=== PATIENT | male | born 1955 | race Caucasian/White ===

== ENCOUNTER 2017-02-18 10:41 | Emergency (ER) | payer OTHER ==
[2017-02-18 10:55] VITALS: BP 166/101
[2017-02-18] MEDS ORDERED: Belladonna Alkaloids/Opium 16.2-30 MG Supp RECTAL ONE (11:48)
--- NOTE | 2017-02-18 11:55 | EDM.PDOC ---
ED HPI GENERAL MEDICAL PROBLEM - General Chief Complaint: Genitourinary Problem Stated Complaint: SUPRAPUBIC CATHETER PLUGGED Time Seen by Provider: 02/18/17 11:47 Source of Information: Reports: Patient, RN Notes Reviewed History Limitations: Reports: No Limitations - History of Present Illness INITIAL COMMENTS - FREE TEXT/NARRATIVE: 61-year-old gentleman presents emergency department today with difficulties urinating, he has a known suprapubic catheter secondary to complications of prostate cancer, he has had difficulty with dysfunction of the suprapubic catheter by clogging, this particular event has been going on for the last 12 hours he's unable to flush the catheter Bladder Pain Score (Numeric/FACES): 8 - Related Data Allergies Allergy/AdvReac Type Severity Reaction Status Date / Time Penicillins Allergy Syncope Verified 02/18/17 10:55 Home Meds: Home Meds Finasteride [Proscar] 5 mg PO DAILY 01/10/15 [History] Omeprazole [Prilosec] 80 mg PO DAILY 01/10/15 [History] Rifaximin [Xifaxan] 1,100 mg PO TID 01/10/15 [History] Midodrine 5 mg PO DAILY 11/10/15 [History] Lactulose 10 ml PO BID 03/06/16 [History] traZODone 150 mg PO BEDTIME 03/06/16 [History] Lisinopril 10 mg PO BID 02/18/17 [History] Past Medical History Cardiovascular History: Reports: Hypertension Respiratory History: Reports: Other (See Below) Other Respiratory History: emphysema Other Gastrointestinal History: Barrets. Other Genitourinary History: supra pubic cath. Musculoskeletal History: Reports: Fracture Other Endocrine/Metabolic History: Hep C Now cured Hematologic History: Reports: Blood Transfusion(s) Oncologic (Cancer) History: Reports: Prostate - Infectious Disease History Infectious Disease History: Reports: Hepatitis C - Past Surgical History Other HEENT Surgeries/Procedures: L EYE SURGERY. fAKE ORBIT. GI Surgical History: Reports: EGD Male Surgical History: Reports: Prostate Biopsy Social & Family History - Tobacco Use Smoking Status *Q: Light Tobacco Smoker Years of Tobacco use: 30 Packs/Tins Daily: 2 Used Tobacco, but Quit: No Second Hand Smoke Exposure: No - Caffeine Use Caffeine Use: Reports: Coffee - Recreational Drug Use Recreational Drug Use: No ED ROS GENERAL - Review of Systems Review Of Systems: See Below Constitutional: Reports: No Symptoms Respiratory: Reports: No Symptoms Cardiovascular: Reports: No Symptoms : Reports: Urinary Retention ED EXAM, RENAL/ - Physical Exam Exam: See Below Exam Limited By: No Limitations General Appearance: Alert, Mild Distress GI/Abdominal: Soft, Tender (Suprapubic area) ED PROCEDURES - Suprapubic Catheter Insertion Consent Obtained: Reports: Patient Performed by:: OfficerAlexandro Prep: Reports: CDC/MBT Guidelines, Sterile Drapes, Betadine Urine Description: Reports: Clear Complications:: No Comments:: The old catheter was removed demonstrating clogged and with sediment, the area was prepped with Betadine copious amounts of jelly were provided underneath sterile technique the new catheter was inserted initial pressure of appreciated and then ease of placement balloon was inflated with 10 mL clear urine was present it was connected back to the leg bag Course - Vital Signs Last Recorded V/S: Last Vital Signs Temp 97.9 F 02/18/17 10:53 Pulse 88 02/18/17 10:53 Resp 14 02/18/17 10:53 BP 166/101 H 02/18/17 10:53 Pulse Ox 97 02/18/17 10:53 - Orders/Labs/Meds Orders: Active Orders 24 hr Category Date Time Status Bladder Scan [RC] ONETIME Care 02/18/17 10:42 Active CULTURE URINE [RM] Urgent Lab 02/18/17 11:57 Uncollected Labs: Laboratory Tests 02/18/17 Range/Units 10:43 Urine Color Yellow Urine Appearance Cloudy Urine pH 6.5 (4.5-8.0) Ur Specific [place] 1.010 (1.008-1.030) Urine Protein Negative (NEGATIVE) mg/dL Urine Glucose (UA) Normal (NEGATIVE) mg/dL Urine Ketones 15 H (NEGATIVE) mg/dL Urine Occult Blood Large (NEGATIVE) Urine Nitrite Positive H (NEGAITVE) Urine Bilirubin Negative (NEGATIVE) Urine Urobilinogen 1 (NORMAL) mg/dL Ur Leukocyte Esterase Moderate (NEGATIVE) Urine RBC 75-100 H (0-5) Urine WBC 5-10 H (0-5) Ur Epithelial Cells Not seen Amorphous Sediment Rare Urine Bacteria Moderate Urine Mucus Not seen Meds: Medications Discontinued Medications Generic Name Dose Route Start Last Admin Trade Name Freq PRN Reason Stop Dose Admin Belladonna Alkaloids/Opium 1 supp 02/18/17 11:48 B & O Supprettes No. 15a RECTAL 02/18/17 11:49 ONETIME ONE Departure - Departure Time of Disposition: 11:58 Disposition: Home, Self-Care 01 Condition: Fair Clinical Impression: Suprapubic catheter dysfunction Qualifiers: Encounter type: initial encounter Qualified Code(s): T83.010A - Breakdown ( mechanical) of cystostomy catheter, initial encounter UTI (urinary tract infection) Qualifiers: Urinary tract infection type: catheter-associated UTI Indwelling urinary catheter type: cystostomy catheter Encounter type: initial encounter Qualified Code(s): T83.510A - Infection and inflammatory reaction due to cystostomy catheter, initial encounter; N39.0 - Urinary tract infection, site not specified - Discharge Information Forms: ED Department Discharge Additional Instructions: Recommend contacting your primary, please take full course of antibiotics keep your follow-up appointment with your urologist, call return to the ED with worsening of symptoms - My Orders Last 24 Hours: My Active Orders 02/18/17 10:42 Bladder Scan [RC] ONETIME 02/18/17 11:57 CULTURE URINE [RM] Urgent - Assessment/Plan Last 24 Hours: My Active Orders 02/18/17 10:42 Bladder Scan [RC] ONETIME 02/18/17 11:57 CULTURE URINE [RM] Urgent Plan: Assessment Acuity = acute Site and laterality = suprapubic catheter dysfunction Etiology = excessive sediment Manifestations = none Location of injury = Home Lab values = urinalysis reveals positive nitrates 75-100 rbc's consists with the hematuria and 5-10 WBCs consistent pyuria cultures pending Plan I did discuss lab results with him he declined antibiotics he is going to call his primary at the [facility] for antibiotic coverage mainly due to cost, he does have follow-up with urology at the end of this month Patient was in agreement with the plan all questions were answered, they were instructed to return to the emergency department or call for worsening symptoms. This note was dictated using [employer] voice recognition software please call with any questions.
== END 2017-02-18 12:09 | disposition home or self-care (01) ==
LOC: JP.ED 10:41
DX: T83.010A Breakdown (mechanical) of cystostomy catheter, initial encounter (principal); T83.510A Infection and inflammatory reaction due to cystostomy catheter, initial encounter; N39.0 Urinary tract infection, site not specified; I10 Essential (primary) hypertension; J43.9 Emphysema, unspecified; Z86.19 Personal history of other infectious and parasitic diseases; F17.210 Nicotine dependence, cigarettes, uncomplicated; Z88.0 Allergy status to penicillin
CPT/HCPCS: 51702; 81001; 87086; 87088; 87186; 99282; 99284; A9270

== ENCOUNTER 2017-12-07 19:39 | Emergency (ER) | payer OTHER ==
[2017-12-07 20:11] VITALS: BP 128/69
--- NOTE | 2017-12-07 20:26 | EDM.PDOC ---
ED HPI GENERAL MEDICAL PROBLEM - General Chief Complaint: Genitourinary Problem Stated Complaint: NO BLADDER/HAVING BLOOD CLOTS THROUGH TUBE Time Seen by Provider: 12/07/17 20:15 Source of Information: Reports: Patient History Limitations: Reports: Other (limited medical records) - History of Present Illness INITIAL COMMENTS - FREE TEXT/NARRATIVE: 62 yo male with a pHx of liver CA, prostate CA, and bladder CA [facility] [place] He has a urostomy currently. He noticed blood in his urostomy bag tonight so came here to the ER. He knows we have none of his records, but he thought he needed an ambulance ride for this so that was his thinking along with concern that he may have clots blocking his urine flow. No fever or vomiting. Rates his pain to nursing at an 8/10, didn't mention pain to me until he was leaving. Onset: Today Onset Date: 12/07/17 Duration: Minutes:, Constant Location: Reports: Abdomen Quality: Reports: Ache Severity: Moderate Improves with: Reports: None Worsens with: Reports: Other (unknown) Context: Reports: Other (CA history, [facility] for [facility]. ) Associated Symptoms: Reports: No Other Symptoms. Denies: Fever/Chills, Nausea/ Vomiting Treatments [employer]: Reports: Other (see below) (none) - Related Data Home Meds: Home Meds Finasteride [Proscar] 5 mg PO DAILY 01/10/15 [History] Omeprazole [Prilosec] 80 mg PO DAILY 01/10/15 [History] Rifaximin [Xifaxan] 1,100 mg PO TID 01/10/15 [History] Midodrine 5 mg PO DAILY 11/10/15 [History] Lactulose 10 ml PO BID 03/06/16 [History] traZODone 150 mg PO BEDTIME 03/06/16 [History] Lisinopril 10 mg PO BID 02/18/17 [History] Past Medical History Cardiovascular History: Reports: Hypertension Respiratory History: Reports: Other (See Below) Other Respiratory History: emphysema Other Gastrointestinal History: Barrets. Other Genitourinary History: supra pubic cath. Musculoskeletal History: Reports: Fracture Other Endocrine/Metabolic History: Hep C Now cured Hematologic History: Reports: Blood Transfusion(s) Oncologic (Cancer) History: Reports: Prostate - Infectious Disease History Infectious Disease History: Reports: Hepatitis C - Past Surgical History Other HEENT Surgeries/Procedures: L EYE SURGERY. fAKE ORBIT. GI Surgical History: Reports: EGD Male Surgical History: Reports: Prostate Biopsy Social & Family History - Tobacco Use Smoking Status *Q: Current Every Day Smoker Years of Tobacco use: 45 Packs/Tins Daily: 1 - Caffeine Use Caffeine Use: Reports: Coffee ED ROS GENERAL - Review of Systems Review Of Systems: See Below Constitutional: Reports: No Symptoms HEENT: Reports: No Symptoms Respiratory: Reports: No Symptoms Cardiovascular: Reports: No Symptoms GI/Abdominal: Reports: Abdominal Pain : Reports: Hematuria Skin: Reports: No Symptoms Neurological: Reports: No Symptoms ED EXAM, RENAL/ - Physical Exam Exam: See Below Exam Limited By: No Limitations General Appearance: Alert, WD/WN, No Apparent Distress Eye Exam: Bilateral Eye: Normal Inspection Ears: Normal External Exam, Normal Canal, Hearing Grossly Normal Nose: Normal Inspection, Normal Mucosa, No Blood Throat/Mouth: Normal Inspection, Normal Lips, Normal Oropharynx, Normal Voice, No Airway Compromise Head: Atraumatic, Normocephalic Neck: Normal Inspection Respiratory/Chest: No Respiratory Distress, No Accessory Muscle Use Cardiovascular: Regular Rate, Rhythm GI/Abdominal: No Distention Extremities: Normal Inspection, Normal Range of Motion Neurological: Alert, Oriented, CN II-XII Intact, Normal Cognition, No Motor/ Sensory Deficits Psychiatric: Normal Affect, Normal Mood Skin Exam: Warm, Dry, Intact, Normal Color, No Rash Course - Vital Signs Last Recorded V/S: Last Vital Signs Temp 36.9 C 12/07/17 20:09 Pulse 92 12/07/17 20:09 Resp 14 12/07/17 20:09 BP 128/69 12/07/17 20:09 Pulse Ox 98 12/07/17 20:09 - Orders/Labs/Meds Orders: Active Orders 24 hr Category Date Time Status UA W/MICROSCOPIC [URIN] Stat Lab 12/07/17 20:02 Ordered Departure - Departure Time of Disposition: 20:37 Disposition: Home, Self-Care 01 Condition: Fair Clinical Impression: Gross hematuria, History of cancer - Discharge Information Instructions: Hematuria, Adult Referrals: Randy Huitron MD [Primary Care Provider] - Forms: ED Department Discharge Additional Instructions: F/U Saturday with your surgeon regarding the bleeding into your urostomy bag. Return if your urine flow stops due to an obstruction. - My Orders Last 24 Hours: My Active Orders 12/07/17 20:02 UA W/MICROSCOPIC [URIN] Stat - Assessment/Plan Last 24 Hours: My Active Orders 12/07/17 20:02 UA W/MICROSCOPIC [URIN] Stat
== END 2017-12-07 20:49 | disposition home or self-care (01) ==
LOC: JP.ED 19:39
DX: R31.0 Gross hematuria (principal); I10 Essential (primary) hypertension; F17.210 Nicotine dependence, cigarettes, uncomplicated; Z79.899 Other long term (current) drug therapy; Z85.05 Personal history of malignant neoplasm of liver; Z85.46 Personal history of malignant neoplasm of prostate; Z85.51 Personal history of malignant neoplasm of bladder
CPT/HCPCS: 81001; 99284